=== PATIENT | female | born 1995 | race Caucasian/White ===

== ENCOUNTER → 2017-07-07 | Outpatient (CLI) | payer OTHER ==
[~2017-07-07] MED LIST: ESCI1TAB6 PO
== END | disposition home or self-care (01) ==
LOC: C.LABSPEC 17:52
PROVIDERS: ATTEND Obstetrics & Gynecology
DX: Z34.81 Encounter for supervision of other normal pregnancy, first trimester (principal)

== ENCOUNTER → 2017-07-15 | Outpatient (CLI) | payer OTHER | END | disposition home or self-care (01) | LOC: C.PAPS 09:35 | PROVIDERS: ATTEND Obstetrics & Gynecology | DX: Z12.4 Encounter for screening for malignant neoplasm of cervix (principal) ==

== ENCOUNTER → 2017-07-15 | Outpatient (CLI) | payer OTHER ==
[2017-07-15 17:35] LABS: BASO % 0.5 %; BASO ABS # 0.05 K/uL (0-0.2); EOS % 1.4 %; EOS ABS # 0.15 K/uL (0-0.5); HEMOGLOBIN 12.1 g/dL (12.0-16.0); IG# 0.03 K/uL (0.00-0.02); LYMPH % 19.4 %; LYMPH ABS # 2.12 K/uL (1.2-3.4); MEAN CELL VOLUME 82.6 fL (80-100); MEAN CORPUSCULAR HEMOGLOBIN 27.8 pg (25-34); MEAN CORPUSCULAR HGB CONC 33.6 g/dl (32-36); MEAN PLATELET VOLUME 10.6 fL (7.4-10.4); MONO ABS # 0.65 K/uL (0.11-0.59); NEUT % 72.4 %; NEUT ABS # 7.91 K/uL (1.4-6.5); PLATELET COUNT 214 K/uL (130-400); RED CELL DISTRIBUTION WIDTH CV 14.7 % (11.5-14.5); RED CELL DISTRIBUTION WIDTH SD 44.2 fL (36.4-46.3); WHITE BLOOD COUNT 10.91 K/uL (4.8-10.8)
== END | disposition home or self-care (01) ==
LOC: C.LAB1850 16:14
PROVIDERS: ATTEND Obstetrics & Gynecology
DX: Z34.81 Encounter for supervision of other normal pregnancy, first trimester (principal)

== ENCOUNTER → 2017-08-31 | Outpatient (CLI) | payer OTHER | LOC: C.LAB 15:52 | PROVIDERS: ATTEND Obstetrics & Gynecology | DX: Z34.82 Encounter for supervision of other normal pregnancy, second trimester (principal) ==

== ENCOUNTER → 2018-01-11 | Outpatient (CLI) | payer OTHER ==
[~2018-01-11] MED LIST changes: +DOCU-94 PO; -ESCI1TAB6 PO; +PRENTAB26 PO
== END | disposition home or self-care (01) ==
LOC: C.LABSPEC 13:11
PROVIDERS: ATTEND Obstetrics & Gynecology
DX: Z34.83 Encounter for supervision of other normal pregnancy, third trimester (principal)

== ENCOUNTER → 2018-01-18 | Outpatient (CLI) | payer OTHER ==
[2018-01-18 17:33] LABS: BASO % 0.2 %; BASO ABS # 0.03 K/uL (0-0.2); EOS % 1.1 %; EOS ABS # 0.14 K/uL (0-0.5); HEMATOCRIT 37.3 % (37-47); HEMOGLOBIN 12.1 g/dL (12.0-16.0); IG# 0.22 K/uL (0.00-0.02); LYMPH % 14.5 %; LYMPH ABS # 1.93 K/uL (1.2-3.4); MEAN CELL VOLUME 83.3 fL (80-100); MEAN CORPUSCULAR HGB CONC 32.4 g/dl (32-36); MEAN PLATELET VOLUME 10.8 fL (7.4-10.4); MONO % 5.7 %; MONO ABS # 0.76 K/uL (0.11-0.59); NEUT % 76.8 %; NEUT ABS # 10.25 K/uL (1.4-6.5); PLATELET COUNT 207 K/uL (130-400); RED CELL DISTRIBUTION WIDTH CV 15.7 % (11.5-14.5); RED CELL DISTRIBUTION WIDTH SD 47.4 fL (36.4-46.3); WHITE BLOOD COUNT 13.33 K/uL (4.8-10.8)
[2018-01-18 17:43] LABS: ALT/SGPT 16 U/L (12-78); AST/SGOT 15 U/L (15-37); CREATININE 0.62 mg/dl (0.60-1.20); URIC ACID 2.9 mg/dl (2.6-7.2)
== END | disposition home or self-care (01) ==
LOC: C.LAB1850 16:22
PROVIDERS: ATTEND Obstetrics & Gynecology
DX: O16.9 Unspecified maternal hypertension, unspecified trimester (principal)

== ENCOUNTER → 2018-01-20 | Outpatient (CLI) | payer OTHER | END | disposition home or self-care (01) | LOC: C.LAB1850 16:43 | PROVIDERS: ATTEND Obstetrics & Gynecology | DX: O16.9 Unspecified maternal hypertension, unspecified trimester (principal) ==

== ENCOUNTER 2021-01-29 16:34 | Observation (INO) ==
[2021-01-29] MEDS ORDERED: ONDANSETRON INJ 2 MG/ML 2 ML VIAL IV ONE (16:50)
[2021-01-29] MEDS: LACTATED RINGER'S 1,000 ML IV PRN ×3 (16:53→22:53)
[2021-01-29] MEDS ORDERED: PATIENT'S HEIGHT AND/OR WEIGHT NEEDED SCH (17:00)
--- NOTE | 2021-01-29 17:03 | History & Physical Report ---
Date of Service January 29, 2021 Assessment & Plan (1) Abdominal pain during : Plan: 25 year old coming in for abdominal pain. - heart rate present and within normal limits. No vaginal bleeding, leakage of fluid, contractions, baby still moving. - Possible dehydration from lack of eating/drinking since Wednesday. Ordered lactated ringer bolus for patient. - Unable to keep down food or drink since Wednesday due to nausea and vomiting. Ordered IV Zofran for patient. Ordered Stadol 1mg once for patient for pain. - Ordered CBC w/ diff, CMP, U/A with culture. - Will continue to monitor patient on fluids. (2) Encounter for supervision of normal in multigravida: History of Present Illness Chief Complaint: 20 weeks abdominal pain. Primary Care Provider: Mila Ochoa This is a 25 year old female at 20 weeks and 6 days coming in to labor and delivery with a complaint of abdominal pain and cramping. - Patient has had nausea and vomiting since Wednesday for which she has been unable to keep any food, liquid, or medications down. - Patient has medication for nausea but been unable to keep it down. - At 3 o'clock today she started having sudden onset pain at the midline below the umbilicus and above the pelvis. Patient endorses the pain is a constant ache but also says a sharp pain that comes and goes, also has cramping. - Patient brought to the hospital by EMS around 16:30. - Patient denies any bleeding from her vagina, leakage of fluid, contractions. Patient is able to feel the baby moving. No complications to . - Patient denies any blood in the urine or dysuria. Allergies Allergy/AdvReac Type Severity Reaction Status Date / Time No Known Allergies Allergy Verified 01/29/21 16:43 Home Medications Medication Instructions Recorded Confirmed Type prenat.vits,triny,nwn-brif-mahiq 1 tab PO DAILY 10/28/20 01/29/21 History promethazine 12.5 mg rectal 12.5 mg DE Q6H PRN #12 ea 11/15/20 01/29/21 Rx suppository bupropion HCl 100 mg tablet,12 hr 100 mg PO DAILY 01/23/21 01/29/21 History sustained-release (Wellbutrin SR) buspirone 10 mg tablet 10 mg PO BID 01/23/21 01/29/21 History Patient History Medical History (Updated 01/29/21 @ 17:00 by Garry Fox DO) Anxiety Depression Encounter for pre-operative examination Fatigue Headache (normal spontaneous vaginal delivery) Varicella vaccination Surgical History H/O removal of cyst [place] teeth extracted Family History Aunt Breast cancer Colorectal cancer Mother Depression Sister Depression Grandmother (Paternal) Ovarian cyst Ovarian cancer Grandmother (Maternal) Ovarian cancer Other History of thyroid disorder Denies family history of Crohn's disease Social History Smoking Status: Never smoker Second Hand Exposure: No; Hx Alcohol Use: No Hx Substance Use: No Preferred Language: Iraqi Communication Ability: Effective Circular Tank Cooper Required: No Beliefs That Will Affect Care: None marital status: marital status details: Willy Dupont (30) [phone] Current Living Situation: Spouse and Family Current Living Situation Comment: lives with spouse, 2 children, step child, nephew, cat-spouse changing gale current occupational status: employed 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 Review of Systems Nausea and vomiting, cramping, constant abdominal pain with occasional sharp pain. Physical Exam Physical Exam: Tender to palpation at the midline below umbilicus as well as some tenderness at the RLQ and LLQ. Cervix closed. Results & Data ([facility]) Vital Signs (Past 12 Hours) Vital Signs Pulse BP 01/29/21 16:38 57 L 119/55 L Laboratory Results - A- - Rubella Immune - HIV negative - Hgb/Hct 11.9/34.7 - WBC 10.12 - Plt 233 - Hepatitis B surface antigen negative Monitoring External Monitor heart rate present and within normal limits - 150's. Supervising Physician Co-Signing Physician Notes Resident Physician Supervision Note: I was present with Dr. Fox during the history and exam. I discussed the case with the resident and agree with the findings and plan as documented in the note. Any exceptions or clarifications are listed here: at 20 6/7 weeks with nothing to eat or drink since sat. Sudden onset crampy/constant abd pain at 3pm when they called ambulance. NO vb/lof. +fm, very active. No urinary sx/dysuria, but decreased output. Notes n/v but no emesis since here . Notes it gets sharp in the lower midline, this area is slightly tender to palpation, no pain with lateral displacement of the uterus. cx--cl/50/-2. toco--teresa and irritability, occasional contraction. efm--150s and c/w 20 weeks. I do not suspect nancy at this time, but likely cramping related to severe dehydration. no elevated wbc to indicate infection. Checking cmp and urinalysis, pending. Plan aggressive fluid hydration, zofran for nausea, patient rating pain 8/10 when it is sharp so will give some stadol. Will recheck cervix in one hour. Explained situation to the patient and her who express understanding. Documented By: Raisa Dominique MD, FACOG Resident Activity Tracking Resident Involvement: Resident Care Provided Care Provided: OB Delivery
[2021-01-29 17:04] LABS: Basophils # (auto) 0.04 K/uL (0-0.2); Basophils % (auto) 0.4 %; Eosinophils # (auto) 0.04 K/uL (0-0.5); Eosinophils % (auto) 0.4 %; Hematocrit (blood only) 34.7 % (37-47); Hemoglobin 11.9 g/dL (12.0-16.0); Immature Granulocytes # (auto) 0.06 K/uL (0.00-0.02); Immature Granulocytes % (auto) 0.6 %; Lymphocytes # (auto) 1.58 K/uL (1.2-3.4); Lymphocytes % (auto) 15.6 %; Mean Corpuscular Hemoglobin 30.1 pg (25-34); Mean Corpuscular Hgb Conc 34.3 g/dL (32-36); Mean Corpuscular Volume 87.6 fL (80-100); Mean Platelet Volume 9.8 fL (7.4-10.4); Monocytes # (auto) 0.69 K/uL (0.11-0.59); Monocytes % (auto) 6.8 %; Neutrophils # (auto) 7.71 K/uL (1.4-6.5); Neutrophils % (auto) 76.2 %; Platelet Count 233 K/uL (130-400); RDW Coefficient of Variation 14.2 % (11.5-14.5); RDW Standard Deviation 45.7 fL (36.4-46.3); Red Blood Count 3.96 M/uL (4.2-5.4); White Blood Count 10.12 K/uL (4.8-10.8)
[2021-01-29] MEDS ORDERED: BUTORPHANOL TARTRATE 1 MG/ML VIAL IV ONE (17:07)
[2021-01-29 17:28] LABS: Alanine Aminotransferase 14 U/L (12-78); Albumin Level 3.2 gm/dl (3.4-5.0); Aspartate Aminotransferase 8 U/L (15-37); BUN Creatinine Ratio 17.4 (10-20); Blood Urea Nitrogen 10 mg/dl (7-18); Calcium 8.9 mg/dl (8.5-10.1); Carbon Dioxide 17 mmol/L (21-32); Chloride 110 mmol/L (98-107); Est GFR (African American) > 150.0 ml/min; Est GFR (Non-African American) 129.5 ml/min; Glucose 80 mg/dl (70-99); Potassium 3.2 mmol/L (3.5-5.1); Sodium 140 mmol/L (136-145)
[2021-01-29 17:30] LABS: Albumin Globulin Ratio 0.8 (0.9-2); Alkaline Phosphatase 55 U/L (45-117); Bilirubin,Total 1.1 mg/dl (0.2-1); Globulin 3.8 gm/dl (2.5-4.0)
[2021-01-29 18:55] LABS: Appearance Urine Clear (Clear); Bacteria Urine Automated Negative (Negative); Blood Urine Negative (Negative); Color Urine Orange; Glucose Urine UA Negative (Negative); Ketones Urine 4+ (Negative); Leukocyte Esterase Urine Trace (Negative); Nitrite Urine Negative (Negative); Protein Urine Trace (Negative); RBC Urine Automated 0-4 /hpf (0-4); Specific Gravity Urine 1.023 (1.000-1.030); Urobilinogen Urine Negative (Negative)
[2021-01-29 19:00] LABS: Bilirubin Urine 1+ (Negative)
[2021-01-29] MEDS: POTASSIUM CHLORIDE / WTR 10 MEQ/100 ML PLCT IV SCH ×2 (19:34→21:08)
[2021-01-29] MEDS ORDERED: ONDANSETRON INJ 2 MG/ML 2 ML VIAL IV PRN (21:03)
--- NOTE | 2021-01-29 21:26 | Obstetrical Progress Note ---
Date of Service January 29, 2021 Assessment & Plan (1) with 20 completed weeks gestation: (2) Abdominal pain during : (3) Dehydration: Plan: Improved much more quickly than anticipated. Urine shows +4 ketones, but no s/s of infection. wbc nl, cmp nl. Getting KCl currently. Discussed with the patient had initially thought might need to keep overnight but seeing how well she is doing, consider d/c after some more fluids. discussed with the patient that she should not go this long if it continues to be an issue. If she goes greater than 24 hours without keeping down anything, she needs to call. Should take zofran around the clock for the next day or so , so she can continue to push fluids. Subjective Patient feeling much better. she notes some discomfort but improved. Resting comfortbaly. she has had a couple of packs of crackers and some sips of water. Notes nausea improved. Physical Exam Constitutional: WD/WN, vitals as above Gastrointestinal (Abdomen): soft, nt, gravid Psychiatric: A+Ox3, euthymic affect Results & Data ([facility]) Vital Signs (Past 12 Hours) Vital Signs Temp Pulse Pulse Resp BP BP Pulse Ox 01/29/21 19:30 36.7 C 75 18 121/73 01/29/21 16:38 57 L 119/55 L 01/29/21 16:35 36.8 C 57 L 18 119/55 L 100 PG Care Time/CCT Total # of Minutes Spent Total Time Spent with Patient: Total time spent is greater than 50% in coordination of care (as documented) at patient's floor/unit and/or counseling patient: Coding Level of Care Code None Diagnoses with 20 completed weeks gestation Z3A.20 Abdominal pain during O26.899; R10.9 Dehydration E86.0
[2021-01-29] MEDS ORDERED: ACETAMINOPHEN 325 MG TAB PO PRN (22:17)
--- NOTE | 2021-01-29 22:22 | Obstetrical Progress Note ---
Date of Service January 29, 2021 Assessment & Plan (1) with 20 completed weeks gestation: (2) Dehydration: Plan: Given the fact she has not taken significant po to demonstrate she will be ok at home, plan to admit for obs, scheduled zofran and try breakfast in the am. Will dip urine for ketones to demonstrate improvement in that. Check potassium in the am. Subjective Patient continues to note that she is feeling better, however, has not really taken in much po. Afraid of nausea. Notes now she just feels achy, no crampy. Physical Exam Constitutional: WD/WN, vitals as above Psychiatric: A+Ox3, euthymic affect Results & Data ([facility]) Vital Signs (Past 12 Hours) Vital Signs Temp Pulse Pulse Resp BP BP Pulse Ox 01/29/21 19:30 36.7 C 75 18 121/73 01/29/21 16:38 57 L 119/55 L 01/29/21 16:35 36.8 C 57 L 18 119/55 L 100 PG Care Time/CCT Total # of Minutes Spent Total Time Spent with Patient: Total time spent is greater than 50% in coordination of care (as documented) at patient's floor/unit and/or counseling patient: Coding Level of Care Code None Diagnoses with 20 completed weeks gestation Z3A.20 Dehydration E86.0
[2021-01-29] MEDS: ONDANSETRON INJ 2 MG/ML 2 ML VIAL IV SCH (23:52)
[2021-01-30] MEDS: ONDANSETRON INJ 2 MG/ML 2 ML VIAL IV SCH (03:57)
[2021-01-30] MEDS: LACTATED RINGER'S 1,000 ML IV PRN (06:24)
[2021-01-30 07:14] LABS: BUN Creatinine Ratio 17.5 (10-20); Blood Urea Nitrogen 7 mg/dl (7-18); Calcium 8.3 mg/dl (8.5-10.1); Carbon Dioxide 22 mmol/L (21-32); Chloride 111 mmol/L (98-107); Creatinine Clr Calc Pharmacy 237.4 ml/min; Est GFR (African American) > 150.0 ml/min; Est GFR (Non-African American) 141.5 ml/min; Glucose 73 mg/dl (70-99); Potassium 3.6 mmol/L (3.5-5.1); Sodium 140 mmol/L (136-145)
--- NOTE | 2021-01-30 07:17 | Obstetrical Progress Note ---
Date of Service January 30, 2021 Assessment & Plan (1) Abdominal pain during : Plan: 25 year old at 20 weeks 6 days coming in for abdominal pain and dehydration. - Patient feeling better this morning than yesterday. - Able to keep down fluids, will try for breakfast/solid food this morning. - Potassium brought up to 3.6 on CMP this morning. - Continue LR bolus to replenish fluids. Will discharge patient after done with fluid bolus and patient ready to go. - Patient told to follow up with the OB office on Wednesday to check how she is doing. Patient was agreeable to the plan. (2) Encounter for supervision of normal in multigravida: Admission and Anticipated Discharge Date Admission Date: January 29, 2021 Supervising Physician Co-Signing Physician Notes Resident Physician Supervision Note: I was present with Dr. Fox during the history and exam. I discussed the case with the resident and agree with the findings and plan as documented in the note. Any exceptions or clarifications are listed here: Patient doing much better this am. Her appetitie is poor. She notes one episode of emesis last night but not documented by nursing. We discussed small frequent meals, alternating liquids and solids. she has voided three times and still dipping large ketones. She notes some slight discomfort but nothing like what she came in with. Will likely go home later today. K+ in nl limits now. Patient does not have zofran in her list of meds. She notes we never gave but got from PCP . She notes she is out. I refilled thi script and encouraged to take around the clock for the next couple of days to stay ahead of nausea. She does have a phenrgan script but does admit she never took it for this episode. She only took dramamine. Again encouraged correct usage of antiemetics. If she is unable to take po meds, she must attempt to use the phenergan rectally. She expresses understanding. Will see the patient in the office on Wednesday. She was advised if she cannot keep anything down for >24 hours, she must call for evaluation. She should not wait as long as she did today. she expresses understanding. Documented By: Raisa Dominique MD, FACOG Subjective Patient feeling better this morning compared to yesterday evening. Still has a bit of cramping but says it is no where near as bad as yesterday's pain. She is still a little nauseous and had one episode of vomiting last night when she tri ed to eat a cracker. Patient is voiding okay without problem. Review of Systems Review of Systems: Denies fever, chills, sweats Denies shortness of breath, difficulty breathing, chest pain, palpitations, chest pressure. Denies dysuria. Abdominal cramping below umbilicus, above pelvis. Physical Exam Physical Exam: General: Alert, oriented. No acute distress. Patient's condition improved since yesterday evening. Cardiac: Regular rate and rhythm, no murmurs/rubs/gallops. Respiratory: Clear to auscultation bilaterally a/p, no wheezes/rales/rhonchi. No increased work of breathing. Symmetrical chest rise. No respiratory distress. Abdomen: Soft, nondistended. Bowel sounds present. Slightly tender to palpation below umbilicus/above pelvis. Results & Data ([facility]) Vital Signs (Past 12 Hours) Vital Signs Temp Pulse Resp BP 01/30/21 04:00 36.6 C 72 20 103/68 01/29/21 23:00 36.6 C 74 18 106/69 01/29/21 19:30 36.7 C 75 18 121/73 Laboratory Results - K+ 3.6 - Urine with 4+ ketones - A- - Rubella Immune - HIV negative - Hgb/Hct 11.9/34.7 - WBC 10.12 - Plt 233 - Hepatitis B surface antigen negative Resident Activity Tracking Resident Involvement: Resident Care Provided Care Provided: Adult [facility] Medicine
--- NOTE | 2021-01-31 23:02 | Discharge Summary (DS) ---
DATE OF DISCHARGE: 01/30/2021. ADMISSION DIAGNOSES: 1. Intrauterine at 20+ weeks. 2. Abdominal cramping. 3. Nausea, vomiting, dehydration history. DISCHARGE DIAGNOSES: 1. Intrauterine at 20+ weeks. 2. Abdominal cramping. 3. Nausea, vomiting, dehydration history. PROCEDURES: 1. IV fluid hydration. 2. Antiemetics. HISTORY: This patient is a 25-year-old white female, 3, para 2 at 20 and 6/7 weeks, coming i n to labor and delivery with complaint of abdominal pain and cramping. The patient has had nausea an d vomiting since Wednesday for which she has been unable to keep down any food, liquid, or medications , this is day #5. At 3:00 on day of admission, she started having sudden onset abdominal pain in the midline below the umbilicus and above the pelvis. The patient endorses this pain is constant ache, but also notes that it is intermittently sharp and crampy. The patient was brought to the hospital b y EMS around 4:30. She denies vaginal bleeding, leaking of fluid. She feels the baby moving. This has been uncomplicated. She denies dysuria or urinary symptoms. For the rest the patient' s detailed history and physical, please see her history and physical. ASSESSMENT: This is a 25-year-old G3, P2, coming in for abdominal cramping that is most likely relat ed to nausea, vomiting and dehydration. HOSPITAL COURSE: Her cervix was checked and evaluated x2 and there was no change. She was having mi ld intermittent contractions and irritability on the monitor. Her UA was clean, except for +4 ketone s. Her white blood cell count was normal. Her CMP was normal as well. She was aggressively IV flui d hydrated and was given antiemetics. Her potassium was 3.2, so she was given two bags of potassium chloride IV. She was really unable to keep anything down on Wednesday evening, so she was monitored overnight. In the morning, she was feeling much better. Her potassium was up to 3.6. I gave her on e more liter of lactated Ringer bolus. She was able to eat a little bit of her breakfast and felt co mfortable being discharged. She was discharged home. She will follow up Wednesday in the office as victor manuel eone can keep an eye on her. She was sent in a prescription for Zofran as she had run out of that. She does have a prescription for Phenergan, but she had not taken that because she did not want to us e it rectally and could not take it p.o., the only thing p.o. she had tried to take was Dramamine. I stressed to the patient that she could not get this far behind again and that she must use the Phene rgan rectally if she was not able to keep down oral antiemetics. I instructed the patient to take Zo sis around the clock for the next 1-2 days so that we could get ahead of the nausea. We discussed s mall frequent meals, liquids and solids, and that fluids were actually the most important thing. We discussed that if she goes more than 24 hours without being able to keep down food, fluids , or medications, that she needs to call to be evaluated. She expressed understanding of this and wa s discharged. Job ID: [id number]
== END 2021-01-30 10:48 | disposition home or self-care (01) ==
LOC: 4S2 16:34 → OPB 16:34 → 4S1 16:35 → 4S2 19:12

== ENCOUNTER 2021-06-05 09:03 | Inpatient (IN) ==
[2021-06-05] MEDS ORDERED: LACTATED RINGER'S 1,000 ML IV PRN (09:13)
[2021-06-05] MEDS ORDERED: OXYTOCIN 30 UNITS/500 ML BAG IV PRN ×2 (09:13)
[2021-06-05] MEDS ORDERED: PENICILLIN G POTASSIUM 6 MU in DEXTROSE 5% 250 ML IV STA (09:19)
[2021-06-05 09:35] LABS: Hematocrit (blood only) 35.4 % (37-47); Hemoglobin 11.4 g/dL (12.0-16.0); Mean Corpuscular Hemoglobin 27.1 pg (25-34); Mean Corpuscular Hgb Conc 32.2 g/dL (32-36); Mean Corpuscular Volume 84.1 fL (80-100); Mean Platelet Volume 10.7 fL (7.4-10.4); Platelet Count 201 K/uL (130-400); RDW Coefficient of Variation 15.1 % (11.5-14.5); RDW Standard Deviation 46.6 fL (36.4-46.3); Red Blood Count 4.21 M/uL (4.2-5.4); White Blood Count 9.77 K/uL (4.8-10.8)
--- NOTE | 2021-06-05 09:51 | History & Physical Report ---
Date of Service June 05, 2021 Assessment & Plan (1) Preeclampsia: Plan: Admit, begin induction. At this time patient has normal BP without headache or RUQ, but given the BP in office and recent symptoms, she has at least gestational hypertension and I suspect actually preeclampsia. Protein is only trace on dip. Labs are pending that will clarify her actual diagnosis. Regardless she is indicated for induction which is now begun. PCN and Pit started now, epidural on request, AROM after 2 doses PCN. May need to start magnesium if BP rises again or if symptoms return. (2) GBS carrier: (3) Encounter for repeat ultrasound of pyelectasis in [place] , antepartum: (4) Need for rhogam due to Rh negative mother: Admission and Anticipated Discharge Date Admission Date: June 05, 2021 History of Present Illness Primary Care Provider: Mila Ochoa 25yo sent from office with concern for preeclampsia at 39wk. BP in office was 164/92 and then 158/94 on repeat. Patient noted mild SEAY and RUQ pain for 2 days. No visual changes. Significant pedal edema noted, and reflexes "+2 to +3" without clonus. On arrival to L&D patient has BP 132/76, is calm and appears comfortable. She does note that there has been SEAY and RUQ pain off and on for 2 days, mild, and they're gone at this moment. She "made a bet" that she'd be delivered by tomorrow and is hoping we will induce her. She notes that she and her are and she isn't sure he will be coming to the hospital for delivery. Allergies Allergy/AdvReac Type Severity Reaction Status Date / Time No Known Allergies Allergy Verified 06/05/21 08:24 Home Medications Medication Instructions Recorded Confirmed Type prenat.vits,triny,wse-lpjk-odouq 1 tab PO DAILY 10/28/20 06/05/21 History promethazine 12.5 mg rectal 12.5 mg MS Q6H PRN #12 ea 11/15/20 06/05/21 Rx suppository buspirone 10 mg tablet 10 mg PO BID 01/23/21 06/05/21 History ondansetron HCl 4 mg tablet 4 mg PO Q8H #20 tab 01/30/21 06/05/21 Rx (Zofran) bupropion HCl 100 mg tablet,12 hr 100 mg PO BID ea 05/05/21 06/05/21 History sustained-release (Wellbutrin SR) ferrous sulfate [Iron (ferrous PO .every other day 05/05/21 06/05/21 History sulfate)] Past Med/Surg History Medical History Anxiety Depression Encounter for pre-operative examination Fatigue Headache (normal spontaneous vaginal delivery) Varicella vaccination Surgical History H/O removal of cyst [place] teeth extracted Family History Aunt Breast cancer maternal Colorectal cancer maternal Mother Depression Sister Depression Grandmother (Paternal) Ovarian cyst Ovarian cancer Grandmother (Maternal) Ovarian cancer Other History of thyroid disorder Denies family history of Crohn's disease Social History Smoking Status: Never smoker Second Hand Exposure: No; Hx Alcohol Use: No Hx Substance Use: No Preferred Language: Tunisian Communication Ability: Effective Promotion Writer Required: No Beliefs That Will Affect Care: None marital status: marital status details: Willy Dupont (30) [phone] Current Living Situation: Spouse and Family Current Living Situation Comment: lives with spouse, 2 children, step child, nephew, cat-spouse changing gale current occupational status: employed 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 Feels Safe at Home: Yes Assistive Devices: None Review of Systems Review of Systems: All systems reviewed & are unremarkable except as noted in HPI & below Physical Exam Constitutional: WD/WN, vitals as above + in distress Eyes: PERRL, conjunctivae normal, anicteric sclerae ENMT: external ear and nose normal, oropharynx normal Neck: supple Respiratory: normal respiratory effort and able to speak in complete sentences; no respiratory distress Cardiovascular: Rate/Rhythm: regular rate and regular rhythm Extremities: + pedal edema (2+ pitting) Gastrointestinal (Abdomen): Gravid / AGA, nontender Musculoskeletal: no cyanosis or clubbing, extremities motor strength 5/5 Skin: no rashes, warm and dry Neurologic: patellar DTR's 2+ bilat, sensation intact Psychiatric: A+Ox3, euthymic affect Genitourinary: Speculum/Bimanual Exam: no vaginal lesions, no vaginal bleeding and uterus nontender OB Exam Abdomen: + vertex and + estimated weight (7) OB Exam Monitor Tracing: + external FHT monitor used, + external uterine monitor used and + category I Accept cervical exam done in office today by Dr. Varma, 3cm/50% Lymphatic: no cervical or axillary lymphadenopathy Results & Data Results & Data ([facility]) Vital Signs (Past 12 Hours) Vital Signs Pulse BP 06/05/21 09:19 86 132/76 06/05/21 09:10 83 135/77 Code Status & VTE Plan VTE Prophylaxis Plan VTE Prophylaxis will be ordered: Yes PG Care Time/CCT Total # of Minutes Spent Total Time Spent with Patient: Total time spent is greater than 50% in coordination of care (as documented) at patient's floor/unit and/or counseling patient: Coding Level of Care Code None Diagnoses Preeclampsia O14.90 GBS carrier Z22.330 Encounter for repeat ultrasound of pyelectasis in [place] , antepartum O35.8XX0 Need for rhogam due to Rh negative mother Z29.13
[2021-06-05 10:18] LABS: Alanine Aminotransferase 19 (12-78); Albumin Level 2.7 gm/dl (3.4-5.0); Aspartate Aminotransferase 15 U/L (15-37); BUN Creatinine Ratio 14.6 (10-20); Bilirubin Direct < 0.1 mg/dl (0-0.2); Blood Urea Nitrogen 9 mg/dl (7-18); Calcium 8.7 mg/dl (8.5-10.1); Carbon Dioxide 22 mmol/L (21-32); Chloride 110 mmol/L (98-107); Est GFR (Non-African American) 125.1 ml/min; Glucose 76 mg/dl (70-99); Potassium 3.9 mmol/L (3.5-5.1); Sodium 138 mmol/L (136-145)
[2021-06-05 10:20] LABS: Albumin Globulin Ratio 0.7 (0.9-2); Alkaline Phosphatase 128 U/L (45-117); Bilirubin,Total 0.2 mg/dl (0.2-1); Globulin 4.1 gm/dl (2.5-4.0); Total Protein 6.8 gm/dl (6.4-8.2)
[2021-06-05] MEDS: PENICILLIN G POTASSIUM 3 MU in DEXTROSE 5% 100 ML IV PRN ×2 (14:09→17:47)
--- NOTE | 2021-06-05 17:24 | Labor Progress Brief Note ---
Date of Service June 05, 2021 Subjective Tolerating labor, does not desire pain mgmt. Assessment & Plan (1) Preeclampsia: (2) Gestational hypertension: Plan: Labs normal, BP improved greatly, symptoms resolved prior to admission and have not returned, no greater than trace protein on dip, so diagnosis appears to be best classified as gestational hypertension without severe features. Induction continues. Patient declines epidural, has received 2x doses PCN for GBS. Admission and Anticipated Discharge Date Admission Date: June 05, 2021 Physical Exam Genitourinary: / Clear LOF continues FHT Cat 1 [place] q2 Results & Data ([facility]) Vital Signs (Past 12 Hours) Vital Signs Temp Pulse Resp BP 06/05/21 17:12 75 120/74 06/05/21 16:14 79 135/79 06/05/21 15:44 98.4 F 20 06/05/21 15:14 85 22 127/79 06/05/21 14:13 98.4 F 76 20 131/68 06/05/21 13:39 98.8 F 85 20 135/81 06/05/21 13:13 85 135/81 06/05/21 12:20 62 132/82 06/05/21 11:12 73 20 127/81 06/05/21 10:57 76 130/76 06/05/21 10:42 86 20 137/82 06/05/21 10:12 86 138/79 06/05/21 09:19 86 132/76 06/05/21 09:10 98.8 F 83 20 135/77 Coding Level of Care Code None Diagnoses Preeclampsia O14.90 Gestational hypertension O13.9
--- NOTE | 2021-06-05 19:42 | Delivery Summary ---
Vaginal Delivery Summary Date of Service June 05, 2021 Vaginal Delivery Summary DIAGNOSES: 1. Allen intrauterine at 39wk0d gestation. 2. Induction of Labor. 3. Group B Streptococcus Pos. 4. Gestational Hypertension PROCEDURE: Spontaneous vaginal delivery without laceration. SURGEON: Haydee Tyson MD. SENIOR HARDWARE DESIGN ENGINEER: None. ESTIMATED BLOOD LOSS: 250 mL. COMPLICATIONS: None. PLACENTA: Spontaneous and intact with a 3-vessel cord. DISPOSITION: Stable to labor and delivery. DESCRIPTION: The patient pushed well and brought the head to in DOA position. The infant's head was allowed to deliver with contraction force and no further active pushing, with the perineum protected during this time. There was no nuchal cord. The right shoulder was anterior. The shoulders and body delivered without any difficulty, and the was placed on the maternal abdomen. It was vigorous and moving all extremities, and making respiratory efforts. The cord was doubly clamped and then cut by the FOB. The placenta delivered spontaneously and was noted to be intact and with a 3VC. The cervix, vagina and perineum were examined and were found to be without defect requiring repair. The fundus was firm and lochia minimal immediately after delivery. MNP Vaginal Delivery Charge Vaginal Delivery Codes: 83344 global code for the antepartum, delivery, and post-
[2021-06-05] MEDS ORDERED: ACETAMINOPHEN 325 MG TAB PO PRN (20:07)
[2021-06-05] MEDS ORDERED: IBUPROFEN 600 MG TAB PO PRN (20:07)
[2021-06-05] MEDS ORDERED: HYDROCORTISONE ACETATE 25 MG SUPP PR PRN (20:07)
[2021-06-05] MEDS ORDERED: oxyCODONE/ACETAMINOPHEN 5mg/325mg TAB PO PRN (20:07)
[2021-06-05] MEDS ORDERED: SUPERCREAM 0.870% 15 GM JAR EXT PRN (20:07)
[2021-06-05] MEDS ORDERED: BENZOCAINE 20% AER SPR 82.5 GM CAN EXT PRN (20:07)
[2021-06-05] MEDS ORDERED: DIPHTHERIA/TETANUS/PERTUSSIS 0.5 ML SYR/VIAL IM ONE (21:00)
[2021-06-05] MEDS: buPROPion SR 100 MG TABCR PO SCH (22:11)
[2021-06-05] MEDS: DOCUSATE SODIUM 100 MG CAP PO SCH (22:11)
[2021-06-05] MEDS: busPIRone 5 MG TAB PO SCH (22:11)
--- NOTE | 2021-06-06 05:35 | Obstetrical Progress Note ---
Date of Service June 06, 2021 Assessment & Plan (1) Encounter for care and examination after delivery: Plan: 25 yo , now PPD 1 s/p at 39 weeks -Continue routine care -Vitals reviewed- HDS, afebrile -A-, GBS+ treated with penicillin, Rubella immune. Will get Rhogam prior to D/C -Encourage ambulation, regular diet -Pain control with ibuprofen, acetaminophen PRN -Encourage -Hgb 11.4 -F/u in 6 weeks withOB Admission and Anticipated Discharge Date Admission Date: June 05, 2021 Supervising Physician Co-Signing Physician Notes Resident Physician Supervision Note: I interviewed and examined the patient. Discussed with Dr. Garza and agree with f indings and plan as documented in the note. Any exceptions or clarifications are listed here: [ ] Documented By: Haydee Tyson MD, FACOG Subjective PPD 1 s/p complicated by preeclampsia and GBS+ that was treated during . Patient seen and examined at bedside. Reports no acute overnight events. Ambulating and voiding. Passing gas w/o BM. Regular diet w/o N/V. Lochia moderate per patient. w/o complication. Pain 06/16. Review of Systems Review of Systems: Denies fevers/chills. Denies dyspnea, cough. Denies chest pain. Denies breast pain or discharge. Denies dysuria. Denies headache. Denies back pain. Physical Exam Physical Exam: General: Alert, oriented, no acute distress Cardiac: Regular rate and rhythm, normal S1, S2. No murmurs appreciated. Respiratory: Clear to auscultation b/l with good air flow entry, symmetric chest rise and fall. No wheezes or crackles. No increased work of breathing or accessory muscle use Abdomen: Soft, nontender, nondistended. Fundus firm and palpable at 2 cm below umbilicus. No guarding or rebound. Skin: No rashes or lesions Extremities: Warm, dry, well-perfused with capillary refill <2s b/l. 2+ pitting edema b/l. No erythema or swelling. Negative Shana's sign b/l. Neuro: 2+ patellar reflexes b/l Results & Data ([facility]) Vital Signs (Past 12 Hours) Vital Signs Temp Pulse Pulse Resp BP BP Pulse Ox 06/06/21 00:20 36.8 C 73 17 127/75 97 06/05/21 21:45 37.2 C 92 H 16 119/73 97 06/05/21 21:12 87 113/59 L 06/05/21 20:57 92 H 20 130/60 06/05/21 20:42 81 16 132/71 06/05/21 20:27 82 135/80 06/05/21 20:12 80 20 127/78 06/05/21 20:05 20 06/05/21 19:57 77 118/70 06/05/21 19:42 93 H 20 113/57 L 06/05/21 19:27 100 H 20 119/59 L 06/05/21 19:12 95 H 131/63 06/05/21 19:11 36.7 C 20 06/05/21 18:17 96 H 130/84 06/05/21 17:55 36.7 C 20
[2021-06-06 06:54] LABS: Hematocrit (blood only) 32.4 % (37-47); Hemoglobin 10.2 g/dL (12.0-16.0); Mean Corpuscular Hemoglobin 26.4 pg (25-34); Mean Corpuscular Hgb Conc 31.5 g/dL (32-36); Mean Corpuscular Volume 83.9 fL (80-100); Mean Platelet Volume 11.4 fL (7.4-10.4); Platelet Count 187 K/uL (130-400); RDW Coefficient of Variation 15.1 % (11.5-14.5); RDW Standard Deviation 46.5 fL (36.4-46.3); Red Blood Count 3.86 M/uL (4.2-5.4); White Blood Count 12.67 K/uL (4.8-10.8)
[2021-06-06] MEDS: DOCUSATE SODIUM 100 MG CAP PO SCH (07:30)
[2021-06-06] MEDS ORDERED: PRENATAL VITAMIN 1 TAB PO SCH (08:00)
[2021-06-06] MEDS: busPIRone 5 MG TAB PO SCH (08:38)
[2021-06-06] MEDS: buPROPion SR 100 MG TABCR PO SCH (08:38)
== END 2021-06-06 21:05 | disposition home or self-care (01) | DRG 807 ==
LOC: OPB 09:03 → 4S1 09:05 → 4S2 23:03